=== PATIENT | male | born 1950 | race Caucasian/White ===

== ENCOUNTER 2017-04-28 09:08 | Emergency (ER) | payer MEDICARE ==
[~2017-04-28] VITALS: Ht 162.6 cm; Wt 84.0 kg
[2017-04-28] MEDS ORDERED: ASPIRIN 81 MG CHEW TABLET PO ONE (09:30)
[2017-04-28] MEDS ORDERED: LIPI20TA PO (09:45)
[2017-04-28] MEDS ORDERED: BUPR300T34 PO (09:46)
[2017-04-28] MEDS ORDERED: VALS1TAB47 PO (09:46)
[2017-04-28] MEDS ORDERED: ZETI10TA30 PO (09:46)
[2017-04-28] MEDS ORDERED: GEMF600T PO (09:46)
[2017-04-28] MEDS ORDERED: METO37.5 PO (09:46)
[2017-04-28] MEDS ORDERED: CLOP75TA2 PO (09:46)
[2017-04-28] MEDS ORDERED: AMLO25TA PO (09:46)
[2017-04-28] MEDS ORDERED: ASPI1TAB PO (09:46)
[2017-04-28] MEDS ORDERED: FOLI5INJ2 SC (09:46)
[2017-04-28 09:52] LABS: BASO % 0.9 % (0.0-1.0); EOS # 0.1 K/mm3 (0.0-0.50); EOS % 3.4 % (0.0-3.0); LARGE UNSTAINED CELL # 0.3 K/mm3 (0.0-0.4); LARGE UNSTAINED CELL % 7.1 % (0.0-4.0); LYMPH # 1.4 K/mm3 (1.5-4.5); LYMPH % 26.4 % (24.0-44.0); MEAN CORPUSCULAR HEMOGLOBIN 33.3 pg (27.0-33.0); MEAN CORPUSCULAR VOLUME 97.8 fl (80.0-96.0); MONO # 0.3 K/mm3 (0.0-0.8); MONO % 7.8 % (0.0-5.0); NEUTROPHILS # 2.3 K/mm3 (1.8-7.7); NEUTROPHILS % 54.4 % (36.0-66.0); PLATELET COUNT, AUTOMATED 183 k/mm3 (150-450); RED CELL DISTRIBUTION WIDTH 12.9 % (11.5-14.5); WHITE BLOOD COUNT 4.1 K/mm3 (4.0-10.0)
--- NOTE | 2017-04-28 09:56 | REP ---
Chest one-view HISTORY: Chest pain Comparison: None The lungs are clear. The heart is normal in size. The pulmonary vasculature is normal in appearance. Impression: No acute disease. Signed by Ike Singh MD 04/28/2017 09:47 A
[2017-04-28 10:22] LABS: ANION GAP 6 MEQ/L (8-16); BLOOD UREA NITROGEN 18 MG/DL (7-18); CALCIUM LEVEL 8.8 MG/DL (8.8-10.2); CARBON DIOXIDE LEVEL 28 MEQ/L (21-32); CHLORIDE LEVEL 106 MEQ/L (98-107); CREATININE FOR GFR 0.71 MG/DL (0.70-1.30); GLOMERULAR FILTRATION RATE > 60.0 (>49); GLUCOSE, FASTING 97 MG/DL (80-110); POTASSIUM SERUM 3.9 MEQ/L (3.5-5.1); SODIUM LEVEL 140 MEQ/L (136-145)
[2017-04-28] MEDS ORDERED: MORPHINE 2 MG/ML 1ML SYRINGE IV ONE ×2 (11:45→13:00)
[2017-04-28 11:55] VITALS: BP 136/83
--- NOTE | 2017-04-28 18:36 | ECGEPIP ---
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
== END 2017-04-28 12:53 | disposition short-term general hospital (02) ==
LOC: M ED 09:08
DX: I20.0 Unstable angina (principal); I25.2 Old myocardial infarction; I10 Essential (primary) hypertension; E78.4 Other hyperlipidemia; Z98.61 Coronary angioplasty status